=== PATIENT | female | born 1960 | race Caucasian/White ===

== ENCOUNTER 2016-10-11 15:33 | Emergency (ER) | payer OTHER ==
[~2016-10-11] VITALS: Ht 165.1 cm; Wt 117.0 kg
[~2016-10-11 15:33] MED LIST: ACETAMINOPHEN-1 EAC1 ORAL; AZITHROMYCIN250 MG ORAL; AZITHROMYCIN500 MG ORAL; BENADRYL50 MG ORAL; BUSPAR10 MG PO; COLACE100 MG PO; CYCLOBENZAPRINE10 MG ORAL; CYCLOBENZAPRINE10 MG PO; IBUPROFEN600 MG ORAL; KLONOPIN1 MG ORAL; LEVAQUIN500 MG PO; LEVOFLOXACIN500 MG ORAL; METFORMIN HCL850 M1 ORAL; NYSTATIN100000 UN1 ORAL; OMEPRAZOLE40 M1 PO; PAROXETINE HCL20 MG PO; PLAQUENIL200 MG ORAL; PROPRANOLOL HCL20 MG PO; PSEUDOEPHEDRINE60 MG PO; SPIRONOLACTONE25 MG PO; VICTOZA 3-0.6 MG/0.1 SQ; ZITHROMAX250 MG ORAL; ZOCOR20 MG ORAL
--- NOTE | 2016-10-11 15:58 | Emergency Room Report ---
History of Present Illness General Chief Complaint: Generalized Weakness Source: Patient, Medical Record Present Illness HPI 56-year-old female presents to emergency Department complaining of left-sided facial drooping since 5 PM yesterday evening. She also reports mild frontal headache rated as 5/10 in severity localized. She denies photophobia, nausea, vomiting, fevers, chills, rashes, neck pain or stiffness. Patient reports slow progressive onset of headache. Patient denies recent trauma to the head. She states she has a history of polycythemia and occasionally will require therapeutic phlebotomy. Patient denies upper extremity with weakness, numbness, recent illness. Patient also reports a history of lupus. She denies recent travel. Denies numbness tingling or loss of sensation or gross motor movements of the extremities, incontinence of bowel or bladder. Denies CP, Palpitations, LOC, AMS, dizziness, Changes in Vision, Sensation, paresthesias, or a sudden severe headache. Allergies: Coded Allergies: HYDROMORPHONE (Verified Allergy, Severe, 06/16/16) PENICILLINS (Verified Allergy, Severe, " become the girl on fire.", 02/03/13 ) DOXYCYCLINE (Verified Allergy, Intermediate, rash, 02/03/13) Patient History Past Medical History: see triage record Past Surgical History: none Pertinent Family History: none Now: No : 4 Para: 0 Immunizations: UTD Reviewed Nursing Documentation: PMH: Agreed, PSxH: Agreed Nursing Documentation-PMH Hx Cardiac Problems: Yes - tachycardia Hx Diabetes: Yes Hx Neurological Problems: Yes - lupus, fibromyalgia, arthritis Review of Systems All Other Systems: negative except mentioned in HPI Physical Exam Vital Signs Date Time Temp Pulse Resp B/P Pulse Ox O2 Delivery O2 Flow Rate FiO2 10/11/16 15:41 98.4 93 16 95/63 96 Room Air Sp02 EP Interpretation: reviewed, normal General Appearance: no apparent distress, alert, GCS 15, non-toxic Head: normocephalic, atraumatic Eyes: bilateral eye PERRL, bilateral eye normal inspection ENT: hearing grossly normal, normal pharynx, no angioedema, normal voice Neck: full range of motion, supple/symm/no masses Respiratory: chest non-tender, lungs clear, normal breath sounds, speaking full sentences Cardiovascular #1: regular rate, rhythm, no edema Gastrointestinal: normal bowel sounds, non tender, soft, no guarding, no rebound Rectal: deferred Genitourinary: normal inspection, no CVA tenderness Musculoskeletal: back normal, gait/station normal, normal range of motion, non- tender, no calf tenderness Neurologic: alert, oriented x3, responsive, motor strength/tone normal, sensory intact, speech normal, no pronator, facial droop - left sided facial droop ( mild) , other - mild left sided facial droop noted that spares the upper eyelid and eyebrow. , equal assistant auto center manager strength bilaterally, no pronator drift, negative redd's , and pt. is ambulatory with a steady gait without need of assistance. Psychiatric: judgement/insight normal, memory normal, mood/affect normal, no suicidal/homicidal ideation Skin: normal color, no rash, warm/dry, well hydrated Lymphatic: no adenopathy Medical Decision Making PA Attestation Dr. Giles is my supervising Physician whom patient management has been discussed with. Diagnostic Impression: Primary Impression: Quiñones's palsy ER Course Pt. presents to the ED c/o f left-sided facial drooping since 5 PM yesterday evening. She also reports mild frontal headache rated as 5/10 in severity localized. Ddx considered but are not limited to CVA, TIA, Quiñones's Palsy, MG Vital signs: are WNL, pt. is afebrile H&PE are most consistent with Quiñones's palsy , will r/o acute ICH due to pt.'s presentation of eyebrow sparing with left sided facial droop. Pt. is NAD, A&O during ED visit. ORDERS: -CT head No contrast: No evidence of acute fracture, hemorrhage, or intracranial process, prominent age-related frontal atrophy Per: official radiology report. ED INTERVENTIONS: -500mg Tylenol PO DISCHARGE: At this time pt. is stable for d/c to home. Will provide printed patient care instructions, and any necessary prescriptions. Care plan and follow up instructions have been discussed with the patient prior to discharge. Last Vital Signs Date Time Temp Pulse Resp B/P Pulse Ox O2 Delivery O2 Flow Rate FiO2 10/11/16 15:41 98.4 93 16 95/63 96 Room Air Disposition: HOME, SELF-CARE Condition: Stable Scripts Prednisone* (PREDNISONE*) 10 Mg Tablet 15 MG ORAL DAILY for 5 Days, #8 TAB 0 Refills Prov: Lindsey Bro 10/11/16 Acetaminophen* (TYLENOL EXTRA STRENGTH*) 500 Mg Tablet 500 MG ORAL Q6H, #30 TAB 0 Refills Prov: Lindsey Bro 10/11/16 Patient Instructions: Quiñones Palsy Additional Instructions: Take medications as directed. Follow up with PCP or Neurologist in 3-5 days Return sooner to ED if new symptoms occur, or current symptoms become worse. Lindsey Bro Oct 11, 2016 15:58
[2016-10-11 16:08] VITALS: BP 99/66
[2016-10-11] MEDS ORDERED: Acetaminophen 500mg (ES) tab ORAL ONE ×2 (16:30→16:31)
[2016-10-11] MEDS ORDERED: TYLENOL EXTRA500 MG ORAL (17:16)
[2016-10-11] MEDS ORDERED: PREDNISONE20 MG ORAL (17:16)
[2016-10-11] MEDS ORDERED: PREDNISONE10 MG ORAL (17:30)
[2016-10-11 17:38] VITALS: BP 102/69
[2016-10-11 17:39] VITALS: BP 102/69
--- NOTE | 2016-10-12 09:52 | Diagnostic Imaging Report ---
Indications: Cephalgia, left-sided facial droop Technique: Continuous helical CT imaging of the brain was performed with automatic exposure control on a Siemens sensation [address] scanner. Axial and coronal images were reconstructed at 5 mm slice thickness and interval. CTDI volume(s): 70 mGy Total DLP: 1421 mGy-cm Findings: Comparison: None. Bilateral frontal lobes are atrophic. No evidence of mass or hemorrhage, other attenuation abnormality, mass effect, midline shift, hydrocephalus or increased intracranial pressure. Bone window images are unremarkable. Visualized paranasal sinuses and mastoid air cells are clear. IMPRESSION: No evidence of acute intracranial pathology. Early/subtle acute abnormalities may be missed, however. If clinically indicated, MRI of the brain without and with gadolinium may be of benefit in further evaluation Bifrontal atrophy, prominent for age. Written preliminary report placed in PACS 10/11/[address] scanner at [facility] is accredited by the [employer] and the scans are performed using protocols designed to limit radiation exposure to as low as reasonably achievable to attain images of sufficient resolution adequate for diagnostic evaluation.
== END 2016-10-11 17:40 | disposition home or self-care (01) ==
LOC: EMR 16:17
DX: G51.0 Bell's palsy (principal); R51 Headache; E11.9 Type 2 diabetes mellitus without complications; M32.9 Systemic lupus erythematosus, unspecified; M79.7 Fibromyalgia
CPT/HCPCS: 70450; 99284

== ENCOUNTER 2016-12-05 16:51 | Emergency (ER) | payer OTHER ==
[~2016-12-05] VITALS: Ht 165.1 cm; Wt 119.3 kg
[~2016-12-05 16:51] MED LIST changes: +PREDNISONE10 MG ORAL; +PREDNISONE20 MG ORAL; +TYLENOL EXTRA500 MG ORAL
[2016-12-05] MEDS ORDERED: PREDNISONE5 MG ORAL (17:54)
[2016-12-05] MEDS ORDERED: IBUPROFEN600 MG ORAL (17:54)
[2016-12-05] MEDS ORDERED: PREDNISONE5 M4 PO (17:58)
[2016-12-05 18:05] VITALS: BP 123/71
--- NOTE | 2016-12-05 19:28 | Emergency Room Report ---
History of Present Illness General Chief Complaint: Pain Source: Patient Present Illness HPI The patient is a 56-year-old female with a history of lupus presenting with total body pain which began yesterday. The patient states that this feels typical of her lupus flareups. The patient states that she usually takes Motrin with prednisone which helps. Pain is described as an 8/10 dull ache to all of her joints. Pain worse with touching and movement. The patient has tried Motrin which does help. The patient denies any other symptoms including nausea, vomiting, fever, chills, abdominal pain Allergies: Coded Allergies: HYDROMORPHONE (Verified Allergy, Severe, 06/16/16) PENICILLINS (Verified Allergy, Severe, " become the girl on fire.", 02/03/13 ) DOXYCYCLINE (Verified Allergy, Intermediate, rash, 02/03/13) Patient History Past Medical History: see triage record Pertinent Family History: none Now: No Reviewed Nursing Documentation: PMH: Agreed, PSxH: Agreed Nursing Documentation-PMH Past Medical History: No History, Except For Hx Cardiac Problems: Yes - tachycardia Hx Diabetes: Yes Hx Neurological Problems: Yes - lupus, fibromyalgia, arthritis Review of Systems All Other Systems: negative except mentioned in HPI Physical Exam Vital Signs Date Time Temp Pulse Resp B/P Pulse Ox O2 Delivery O2 Flow Rate FiO2 12/05/16 17:03 98.2 101 16 104/73 100 Room Air Sp02 EP Interpretation: reviewed, normal General Appearance: no apparent distress, alert, GCS 15, non-toxic Head: normocephalic, atraumatic Eyes: bilateral eye PERRL, bilateral eye normal inspection ENT: hearing grossly normal, normal pharynx, no angioedema, normal voice Neck: full range of motion, supple/symm/no masses Cardiovascular #1: tachycardia Gastrointestinal: normal bowel sounds, non tender, soft, non-distended, no guarding, no rebound Genitourinary: normal inspection, no CVA tenderness Musculoskeletal: back normal, gait/station normal, normal range of motion, tender - TTP diffusely Neurologic: alert, oriented x3, responsive, motor strength/tone normal, sensory intact, speech normal Psychiatric: judgement/insight normal, memory normal, mood/affect normal, no suicidal/homicidal ideation Skin: normal color, no rash, warm/dry, well hydrated Lymphatic: no adenopathy Medical Decision Making PA Attestation Dr. Feng is my supervising physician. Patient management was discussed with my supervising physician Diagnostic Impression: Primary Impression: Lupus ER Course The patient is a 56-year-old female with a history of lupus presenting with total body pain which began yesterday Ddx considered include but not limited to sprain/strain, fracture, contusion, SLE PE: tachycardia. Otherwise unremarkable. Pt admits to feeling anxious. diffuse TTP over joints. No erythema. Skin warm and dry. SILT. Full AROM. Normal gait Pt admits to recent kidney function test which was unremarkable. The patient is discharged home with prescription for prednisone and Motrin. Patient will see PMD as soon as possible for followup. ER precautions are given Last Vital Signs Date Time Temp Pulse Resp B/P Pulse Ox O2 Delivery O2 Flow Rate FiO2 12/05/16 18:05 96 16 123/71 98 Room Air 12/05/16 18:05 98.1 Status: improved Disposition: HOME, SELF-CARE Condition: Improved Scripts Prednisone (PREDNISONE) 5 Mg Tab.ds.pk 5 MG PO DAILY, #1 PACK Prov: LEXII MAYNARD 12/05/16 Ibuprofen* (MOTRIN*) 600 Mg Tablet 600 MG ORAL Q8H Y for For Pain, #30 TAB 0 Refills Prov: LEXII MAYNARD 12/05/16 Patient Instructions: Systemic Lupus Erythematosus, Adult Additional Instructions: I discussed my findings with the patient. All questions and concerns have been answered. Treatment and medication compliance have been addressed. I advised the patient that they need to follow up with PMD in 3-5 days. Return to ED if symptoms worsen, new symptoms arise, or if needed for any reason. Patient verbalized understanding of discharge instructions. LEXII MAYNARD Dec 05, 2016 19:28
== END 2016-12-05 19:00 | disposition home or self-care (01) ==
LOC: EMR 18:07
DX: M32.9 Systemic lupus erythematosus, unspecified (principal); M79.7 Fibromyalgia; M19.90 Unspecified osteoarthritis, unspecified site; Z88.5 Allergy status to narcotic agent; Z88.0 Allergy status to penicillin; R00.0 Tachycardia, unspecified; E11.9 Type 2 diabetes mellitus without complications; R52 Pain, unspecified
CPT/HCPCS: 99284

== ENCOUNTER 2017-03-20 15:18 | Emergency (ER) | payer OTHER ==
[~2017-03-20] VITALS: Ht 162.6 cm; Wt 117.9 kg
[~2017-03-20 15:18] MED LIST changes: +PREDNISONE5 M4 PO; +PREDNISONE5 MG ORAL
[2017-03-20] MEDS ORDERED: cefTRIAXone 2 GM in NS 110 ML IVPB ONE ×2 (16:00→17:45)
[2017-03-20] MEDS ORDERED: Ketorolac 30mg Inj IV ONE (16:15)
[2017-03-20 16:54] LABS: BASOPHILS % (AUTO) 1.4 % (0.0-2.0); EOSINOPHILS % (AUTO) 2.2 % (0.0-3.0); LYMPHOCYTES % (AUTO) 23.3 % (20.0-45.0); MEAN CORPUSCULAR HEMOGLOBIN 26.4 PG (27.0-31.0); MEAN CORPUSCULAR HGB CONC 31.9 G/DL (32.0-36.0); MEAN CORPUSCULAR VOLUME 83 FL (80-99); MEAN PLATELET VOLUME 7.1 FL (6.5-10.1); MONOCYTES % (AUTO) 6.4 % (1.0-10.0); NEUTROPHILS % (AUTO) 66.8 % (45.0-75.0); PLATELET COUNT 269 K/UL (150-450); RED BLOOD COUNT 5.34 M/UL (4.20-5.40); RED CELL DISTRIBUTION WIDTH 15.2 % (11.6-14.8); WHITE BLOOD COUNT 8.2 K/UL (4.8-10.8)
[2017-03-20 17:32] LABS: ALBUMIN/GLOBULIN RATIO 1.2 (1.0-2.7); CALCIUM 9.3 mg/dL (8.6-10.2); GLOMERULAR FILTRATION RATE 56.9 mL/min (>60); POTASSIUM 3.6 mEQ/L (3.4-4.9); TOTAL PROTEIN 7.3 g/dL (6.6-8.7)
[2017-03-20] MEDS ORDERED: AFRIN NASAL SPR30 ML NASAL (18:39)
[2017-03-20] MEDS ORDERED: PSEUDOEPHEDRINE60 MG PO (18:39)
[2017-03-20] MEDS ORDERED: ROCEPHIN2 GM/50 ML IV (18:39)
[2017-03-20 18:40] VITALS: BP 93/54
[2017-03-20 20:09] VITALS: BP 99/63
--- NOTE | 2017-03-20 22:09 | Emergency Room Report ---
History of Present Illness General Chief Complaint: General Complaint Source: Patient, Medical Record (LEXII MAYNARD P.ADeb) Present Illness HPI The patient is a 56-year-old female presenting for treatment of sinusitis. She states that she has had symptoms of facial pain and fullness for the past month and was seen by ENT who obtained a culture which grew proteus mirabilis. The patient was placed on oral antibiotics initially which was found to be resistant. She is allergic to the remaining oral antibiotics. She was advised to come to the emergency department for IV antibiotics. Pain is a 7/10 dull ache and does not radiate from the face. Worse with touch. She also admits to nasal congestion. She has been using Claritin-D at home which has not been helping. She denies other symptoms including N, V, F, chills, dizziness, cough (LEXII MAYNARD P.A.) Allergies: Coded Allergies: HYDROMORPHONE (Verified Allergy, Severe, 06/16/16) PENICILLINS (Verified Allergy, Severe, " become the girl on fire.", 02/03/13 ) DOXYCYCLINE (Verified Allergy, Intermediate, rash, 02/03/13) SULFA (SULFONAMIDE ANTIBIOTICS) (Verified Allergy, Unknown, 03/21/17) Patient History Past Medical History: see triage record Pertinent Family History: none Last Menstrual Period: menopause Now: No : 0 Para: 0 Reviewed Nursing Documentation: PMH: Agreed, PSxH: Agreed (LEXII MAYNARD P.A.) Nursing Documentation-PMH Past Medical History: No History, Except For Hx Cardiac Problems: Yes - tachycardia Hx Diabetes: Yes Hx Neurological Problems: Yes - lupus, fibromyalgia, arthritis (LEXII MAYNARD P.A.) Review of Systems All Other Systems: negative except mentioned in HPI (LEXII MAYNARD P.A.) Physical Exam Vital Signs Date Time Temp Pulse Resp B/P Pulse Ox O2 Delivery O2 Flow Rate FiO2 03/20/17 15:33 98.1 82 16 93/47 98 Room Air Sp02 EP Interpretation: reviewed, normal General Appearance: no apparent distress, alert, GCS 15, non-toxic Head: normocephalic, atraumatic Eyes: bilateral eye PERRL, bilateral eye normal inspection ENT: normal pharynx, normal voice, uvula midline, nasal congestion, other - TTP over both frontal and maxillary sinuses Neck: full range of motion, supple/symm/no masses Respiratory: chest non-tender, lungs clear, normal breath sounds, no wheezing, speaking full sentences Cardiovascular #1: regular rate, rhythm, no edema Gastrointestinal: normal bowel sounds, non tender, soft, non-distended, no guarding, no rebound Musculoskeletal: back normal, gait/station normal, normal range of motion, non- tender Neurologic: alert, oriented x3, responsive, motor strength/tone normal, sensory intact, speech normal Psychiatric: judgement/insight normal, memory normal, mood/affect normal, no suicidal/homicidal ideation Skin: normal color, no rash, warm/dry, well hydrated Lymphatic: no adenopathy (LEXII MAYNARD) Medical Decision Making PA Attestation Dr. Newman is my supervising physician. Patient management was discussed with my supervising physician (LEXII MAYNARD) Diagnostic Impression: Primary Impression: Sinusitis Qualified Codes: J01.90 - Acute sinusitis, unspecified Additional Impression: Lupus Qualified Codes: M32.8 - Other forms of systemic lupus erythematosus ER Course The patient is a 56-year-old female presenting for treatment of sinusitis Differential diagnosis include but not limited to pharyngitis, sinusitis, AOM, bronchitis, PNA PE: afebrile. NAD There is tenderness to palpation over both bilateral frontal and maxillary sinuses. + Nasal congestion Otherwise unremarkable The patient was initially put in for admission and blood work was unremarkable. She was given 2 g of IV Rocephin and fluids. The patient's insurance company then called and stated that the patient would be able to have outpatient IV antibiotics at home. The patient will be discharged home with a prescription for 5 days of IV Rocephin, Sudafed, and Afrin. She is given ER precautions Laboratory Tests Test 03/20/17 16:20 White Blood Count 8.2 K/UL (4.8-10.8) Red Blood Count 5.34 M/UL (4.20-5.40) Hemoglobin 14.1 G/DL (12.0-16.0) Hematocrit 44.2 % (37.0-47.0) Mean Corpuscular Volume 83 FL (80-99) Mean Corpuscular Hemoglobin 26.4 PG (27.0-31.0) L Mean Corpuscular Hemoglobin Concent 31.9 G/DL (32.0-36.0) L Red Cell Distribution Width 15.2 % (11.6-14.8) H Platelet Count 269 K/UL (150-450) Mean Platelet Volume 7.1 FL (6.5-10.1) Neutrophils (%) (Auto) 66.8 % (45.0-75.0) Lymphocytes (%) (Auto) 23.3 % (20.0-45.0) Monocytes (%) (Auto) 6.4 % (1.0-10.0) Eosinophils (%) (Auto) 2.2 % (0.0-3.0) Basophils (%) (Auto) 1.4 % (0.0-2.0) Erythrocyte Sedimentation Rate 23 MM/HR (0-30) Sodium Level 140 mEQ/L (135-145) Potassium Level 3.6 mEQ/L (3.4-4.9) Chloride Level 96 mEQ/L (98-107) L Carbon Dioxide Level 28 mEQ/L (20-30) Anion Gap 16 (5-15) H Blood Urea Nitrogen 20 mg/dL (7-23) Creatinine 1.0 mg/dL (0.5-0.9) H Estimate Glomerular Filtration Rate 56.9 mL/min (>60) Glucose Level 119 mg/dL (74-106) H Calcium Level 9.3 mg/dL (8.6-10.2) Total Bilirubin 0.3 mg/dL (0.0-1.2) Aspartate Amino Transferase (AST) 14 U/L (5-40) Alanine Aminotransferase (ALT) 14 U/L (3-33) Alkaline Phosphatase 51 U/L (35-104) C-Reactive Protein, Quantitative < 0.3 mg/dL (< 0.5) Total Protein 7.3 g/dL (6.6-8.7) Albumin 4.1 g/dL (3.5-5.2) Globulin 3.2 g/dL Albumin/Globulin Ratio 1.2 (1.0-2.7) Lab Results Impression unremarkable (LEXII MAYNARD) ER Course I was intimately involved in the treatment plan for this patient. I examined her and agree with the findings and the treatment plan. (Len Newman M.D.) Last Vital Signs Date Time Temp Pulse Resp B/P Pulse Ox O2 Delivery O2 Flow Rate FiO2 03/20/17 20:09 79 16 99/63 94 Room Air 03/20/17 18:40 98.1 Status: improved (LEXII MAYNARD P.A.) Disposition: HOME, SELF-CARE Condition: Improved Scripts Oxymetazoline HCl (Afrin) 15 Ml [place] 2 SPRAYS NASAL TWICE A DAY, #30 SPRAY Prov: LEXII MAYNARD P.A. 03/20/17 Pseudoephedrine Hcl* (SUDAFED*) 60 Mg Tablet 60 MG PO Q6H, #20 TAB Prov: LEXII MAYNARD P.A. 03/20/17 Ceftriaxone Sod (Ceftriaxone 2 gm-D5w Bag) 2 Gm/50 Ml Piggyback 2 GM IV DAILY for 5 Days, BAG Prov: LEXII MAYNARD P.A. 03/20/17 [facility] (PCP) Patient Instructions: Sinusitis, Adult Additional Instructions: I discussed my findings with the patient. All questions and concerns have been answered. Treatment and medication compliance have been addressed. I advised the patient that they need to follow up with PMD in 3-5 days. Return to ED if symptoms worsen, new symptoms arise, or if needed for any reason. Patient verbalized understanding of discharge instructions. LEXII MAYNARD Mar 20, 2017 22:09 Len Newman M.D. Mar 28, 2017 05:25
[2017-03-21] MEDS ORDERED: ROCEPHIN2 GM/50 ML IV (16:24)
[2017-03-21] MEDS ORDERED: NITROFURANTOIN100 M2 ORAL (17:03)
== END 2017-03-20 20:09 | disposition home or self-care (01) ==
LOC: EMR 16:04 → EDBEDREQ 18:45 → CANBEDREQ 19:00 → EMR 20:09
DX: J01.90 Acute sinusitis, unspecified (principal); Z88.1 Allergy status to other antibiotic agents; Z88.0 Allergy status to penicillin; Z88.6 Allergy status to analgesic agent; E11.9 Type 2 diabetes mellitus without complications; M79.7 Fibromyalgia; M19.90 Unspecified osteoarthritis, unspecified site
CPT/HCPCS: 36415; 80053; 85025; 85651; 86140; 96360; 96374; 96375; 99284; J0696; J1885; J2405

== ENCOUNTER 2017-03-21 13:15 | Emergency (ER) | payer OTHER ==
[~2017-03-21] VITALS: Ht 162.6 cm; Wt 117.9 kg
[~2017-03-21 13:15] MED LIST changes: +AFRIN NASAL SPR30 ML NASAL; +ROCEPHIN2 GM/50 ML IV
[2017-03-21 13:37] VITALS: BP 104/57
[2017-03-21] MEDS ORDERED: cefTRIAXone 2 GM in NS 110 ML IVPB ONE (13:45)
[2017-03-21] MEDS ORDERED: Ketorolac 30mg Inj IV ONE (14:00)
[2017-03-21] MEDS ORDERED: Bacitracin Oint UD TOPIC ONE (15:15)
[2017-03-21 16:23] LABS: APPEARANCE,URINE SLIGHTLY CLOUDY; KETONES,URINE NEGATIVE (NEGATIVE); LEUKOCYTE ESTERASE ,URINE 3+ (NEGATIVE); NITRITE,URINE NEGATIVE (NEGATIVE); PH,URINE 6 (4.5-8.0); PROTEIN,URINE 1+ (NEGATIVE); UROBILINOGEN,URINE NORMAL MG/DL (0.0-1.0)
[2017-03-21] MEDS ORDERED: ROCEPHIN2 GM/50 ML IV (16:24)
[2017-03-21 16:46] LABS: BACTERIA,URINE OCCASIONAL /HPF; SQUAMOUS EPITHELIAL CELL,UR MODERATE /LPF (NONE/OCC)
[2017-03-21 17:00] VITALS: BP 121/60
--- NOTE | 2017-03-21 17:02 | Emergency Room Report ---
History of Present Illness General Chief Complaint: General Complaint Source: Patient Present Illness HPI 56-year-old female presents emergency department complaining of inability to obtain IV antibiotics at home for recurrent and resistant sinusitis. Patient was seen here in the emergency department yesterday and was given IV antibiotics , due to her insurance she was not eligible for admission and outpatient IV antibiotic therapy he was supposed to have been facilitated. Patient states that she was not contacted for her course of antibiotics today. Patient denies any changes in her condition. Patient states she failed oral antibiotic therapy in addition to culture growing positive for resistant bacteria and IV antibiotics are the only option. She does report some dysuria x2 weeks as well. Patient denies hematuria, fevers, chills, or abdominal pain. Denies CP, Palpitations, LOC, AMS, dizziness, Changes in Vision, Sensation, paresthesias, or a sudden severe headache. Allergies: Coded Allergies: HYDROMORPHONE (Verified Allergy, Severe, 06/16/16) PENICILLINS (Verified Allergy, Severe, " become the girl on fire.", 02/03/13 ) DOXYCYCLINE (Verified Allergy, Intermediate, rash, 02/03/13) SULFA (SULFONAMIDE ANTIBIOTICS) (Verified Allergy, Unknown, 03/21/17) Patient History Past Medical History: see triage record Past Surgical History: none Pertinent Family History: none Last Menstrual Period: N/A Now: No Reviewed Nursing Documentation: PMH: Agreed, PSxH: Agreed Nursing Documentation-PMH Hx Cardiac Problems: Yes - tachycardia Hx Diabetes: Yes Hx Neurological Problems: Yes - lupus, fibromyalgia, arthritis Review of Systems All Other Systems: negative except mentioned in HPI Physical Exam Vital Signs Date Time Temp Pulse Resp B/P Pulse Ox O2 Delivery O2 Flow Rate FiO2 03/21/17 13:20 98.4 85 18 104/57 96 Room Air Sp02 EP Interpretation: reviewed, normal General Appearance: no apparent distress, alert, GCS 15, non-toxic Head: normocephalic, atraumatic Eyes: bilateral eye PERRL, bilateral eye normal inspection ENT: hearing grossly normal, normal pharynx, no angioedema, normal voice, TMs + canals normal, uvula midline, nasal congestion, other - bilateral maxillary sinus ttp Neck: full range of motion, supple/symm/no masses Respiratory: lungs clear, normal breath sounds, speaking full sentences Cardiovascular #1: regular rate, rhythm, no edema Musculoskeletal: back normal, gait/station normal, normal range of motion, non- tender Neurologic: alert, oriented x3, responsive, motor strength/tone normal, sensory intact, speech normal Psychiatric: judgement/insight normal, memory normal, mood/affect normal Skin: normal color, no rash, warm/dry, well hydrated, abrasions - 1cm abrasion on posterior neck, no erythema, no bleeding at this time. Lymphatic: no adenopathy Medical Decision Making PA Attestation Dr. Molina is my supervising Physician whom patient management has been discussed with. Diagnostic Impression: Primary Impression: Acute sinusitis Qualified Codes: J01.01 - Acute recurrent maxillary sinusitis Additional Impression: UTI (urinary tract infection) Qualified Codes: N30.00 - Acute cystitis without hematuria ER Course 56-year-old female presents emergency department complaining of inability to obtain IV antibiotics at home for recurrent and resistant sinusitis. Patient was seen here in the emergency department yesterday and was given IV antibiotics , due to her insurance she was not eligible for admission and outpatient IV antibiotic therapy he was supposed to have been facilitated. Patient states that she was not contacted for her course of antibiotics today. Patient denies any changes in her condition. Patient states she failed oral antibiotic therapy in addition to culture growing positive for resistant bacteria and IV antibiotics are the only option. She does report some dysuria x2 weeks as well. Ddx considered but are not limited to Sinusitis, UTI, cystitis, nasal congestion. Vital signs: Pt. is afebrile, the remaining VS are WNL H&PE are most consistent with maxillary sinusitis. pt. has abrasion on the posterior neck, no changes in condition from yesterday's ED evaluation. repeat labs are not warranted at this time. I have reviewed pt. laboratory results from yesterday and they were unremarkable. ORDERS: -UA: elevated WBC's, leuks, and some bacteria will treat for UTI. ED INTERVENTIONS: -IV Access -2G Rocephin IV. - Toradol IV- for sinus pain/pressure - Zofran IV-- pt. reports abx causes her to have nausea. HOME NURSING CARE WAS FACILITATED BY [employer] Pt. is TO BE GIVEN RX FOR IV ABX, and to BE D/C WITH IV ACCESS. DISCHARGE: At this time pt. is stable for d/c to home with close outpatient follow up. Will provide printed patient care instructions, and any necessary prescriptions. Care plan and follow up instructions have been discussed with the patient prior to discharge. Labs Test 03/21/17 16:00 Urine Color Pale yellow Urine Appearance Slightly cloudy Urine pH 6 (4.5-8.0) Urine Specific [place] 1.025 (1.005-1.035) Urine Protein 1+ (NEGATIVE) Urine Glucose (UA) Negative (NEGATIVE) Urine Ketones Negative (NEGATIVE) Urine Occult Blood Negative (NEGATIVE) Urine Nitrite Negative (NEGATIVE) Urine Bilirubin Negative (NEGATIVE) Urine Urobilinogen Normal MG/DL (0.0-1.0) Urine Leukocyte Esterase 3+ (NEGATIVE) Urine RBC 2-4 /HPF (0 - 2) Urine WBC 5-10 /HPF (0 - 2) Urine Squamous Epithelial Cells Moderate /LPF (NONE/OCC) Urine Bacteria Occasional /HPF (NONE) Last Vital Signs Date Time Temp Pulse Resp B/P Pulse Ox O2 Delivery O2 Flow Rate FiO2 03/21/17 13:37 98.4 18 104/57 96 Room Air 03/21/17 13:20 85 Disposition: HOME, SELF-CARE Condition: Improved Scripts Nitrofurantoin Monohyd/M-Cryst* (MACROBID 100 MG*) 100 Mg Capsule 100 MG ORAL EVERY 12 HOURS for 5 Days, #10 CAP Prov: Lindsey Bro 03/21/17 Ceftriaxone Sod (Ceftriaxone 2 gm-D5w Bag) 2 Gm/50 Ml Piggyback 2 GM IV DAILY for 4 Days, #4 BAG Prov: ELIZABET MOLINA M.D. 03/21/17 Referrals: [facility] ([facility]P) Patient Instructions: Sinusitis, Adult, [id number] Additional Instructions: Take medications as directed, WITH [facility]ALTH [facility] Follow up with your PCP in 3 days Return sooner to ED if new symptoms occur, or current symptoms become worse. - Please note that this Emergency Department Report was dictated using whoactuallyflume ride operator technology software, occasionally this can lead to erroneous entry secondary to interpretation by the dictation equipment. Lindsey Bro Mar 21, 2017 17:02
[2017-03-21] MEDS ORDERED: NITROFURANTOIN100 M2 ORAL (17:03)
== END 2017-03-21 17:00 | disposition home or self-care (01) ==
LOC: EMR 13:45
DX: J01.91 Acute recurrent sinusitis, unspecified (principal); N39.0 Urinary tract infection, site not specified; E11.9 Type 2 diabetes mellitus without complications; M32.9 Systemic lupus erythematosus, unspecified; Z88.0 Allergy status to penicillin; Z88.2 Allergy status to sulfonamides; Z88.8 Allergy status to other drugs, medicaments and biological substances
CPT/HCPCS: 81003; 99284; J0696; J1885; J2405

== ENCOUNTER 2017-06-16 15:21 | Emergency (ER) | payer OTHER ==
[~2017-06-16] VITALS: Ht 162.6 cm; Wt 117.5 kg
[~2017-06-16 15:21] MED LIST changes: +NITROFURANTOIN100 M2 ORAL
--- NOTE | 2017-06-16 15:41 | Emergency Room Report ---
History of Present Illness General Chief Complaint: Pain Source: Patient Present Illness HPI Patient presents with complaints of pain to the right ring finger she reports that she has a trigger finger and feels that is essentially flexed and has pain when she stretches out She has had treatments for this finger previously she has also had tendon release for her thumb The pain and discomfort has been ongoing for the past one month denies any fevers or chills denies any wrist pain denies any fall or trauma Allergies: Coded Allergies: HYDROMORPHONE (Verified Allergy, Severe, 06/16/16) PENICILLINS (Verified Allergy, Severe, " become the girl on fire.", 02/03/13 ) DOXYCYCLINE (Verified Allergy, Intermediate, rash, 02/03/13) SULFA (SULFONAMIDE ANTIBIOTICS) (Verified Allergy, Unknown, 03/21/17) Patient History Past Medical History: see triage record Pertinent Family History: none Reviewed Nursing Documentation: PMH: Agreed, PSxH: Agreed Nursing Documentation-PMH Past Medical History: No History, Except For Hx Cardiac Problems: Yes - tachycardia Hx Pacemaker: No Hx Asthma: No Hx COPD: No Hx Diabetes: Yes Hx Cancer: No Hx Gastrointestinal Problems: No Hx Dialysis: No History Of Psychiatric Problem: No Hx Neurological Problems: Yes - lupus, fibromyalgia, arthritis Hx Cerebrovascular Accident: No Hx Seizures: No Review of Systems All Other Systems: negative except mentioned in HPI Physical Exam Vital Signs Date Time Temp Pulse Resp B/P (MAP) Pulse Ox O2 Delivery O2 Flow Rate FiO2 06/16/17 15:25 98.1 80 16 106/53 99 Room Air Sp02 EP Interpretation: reviewed, normal General Appearance: well appearing, no apparent distress Head: normocephalic, atraumatic Eyes: bilateral eye PERRL, bilateral eye EOMI ENT: normal pharynx Neck: full range of motion, supple Musculoskeletal: other - Patient initially was pulling her right ring finger in a flexed position, but as she discusses different nickel history she is able to fully extend the finger and have full range of motion, there is no signs of any erythema or swelling, there is good cap refill, , Neurologic: alert, oriented x3 Skin: normal color, no rash Lymphatic: no adenopathy Medical Decision Making Diagnostic Impression: Primary Impression: Finger pain, right ER Course Patient has appropriate range of motion of the finger on the right hand No signs of any acute trauma patient Essentially requesting steroid injection into the joint I did discuss with her that that is not in the scope of practice of the emergency room Patient was provided with oral medication here She did also requests injection of Toradol Unfortunately given the patient's multiple different providers with different medications on the [employer] system, I was also not able to provide any further prescription Given the safe pain medicine prescribing can pain Patient was made aware that is and requires close outpatient follow Last Vital Signs Date Time Temp Pulse Resp B/P (MAP) Pulse Ox O2 Delivery O2 Flow Rate FiO2 06/16/17 15:25 98.1 80 16 106/53 99 Room Air Status: improved Disposition: HOME, SELF-CARE Condition: Improved Scripts Acetaminophen (Tylenol) 325 Mg Tablet 650 MG ORAL Q6H Y for Prn Pain/Headache/Temp > 101, #20 TAB 0 Refills Prov: COLLEEN SOTO D.O. 06/16/17 Ibuprofen* (MOTRIN*) 600 Mg Tablet 600 MG ORAL Q8H Y for For Pain, #20 TAB 0 Refills Prov: COLLEEN SOTO D.O. 06/16/17 Additional Instructions: Patient is provided with the discharge instructions notified to follow up with primary doctor in the next 2-3 days otherwise return to the er with any worsening symptoms. Please note that this report is being documented using [employer] technology. This can lead to erroneous entry secondary to incorrect interpretation by the dictating instrument. COLLEEN SOTO D.O. Jun 16, 2017 15:41
[2017-06-16] MEDS ORDERED: Ketorolac 60mg Inj IM ONE (15:45)
[2017-06-16] MEDS: Tylenol #3 tab (300mg/30mg) ORAL ONE ×2 (15:49→15:56)
[2017-06-16] MEDS ORDERED: IBUPROFEN600 MG ORAL (16:26)
[2017-06-16] MEDS ORDERED: TYLENOL325 MG ORAL (16:26)
[2017-06-16 16:30] VITALS: BP 106/53
== END 2017-06-16 16:37 | disposition home or self-care (01) ==
LOC: EMR 15:54
DX: M25.541 Pain in joints of right hand (principal); Z88.2 Allergy status to sulfonamides; Z88.0 Allergy status to penicillin; Z88.8 Allergy status to other drugs, medicaments and biological substances; M32.9 Systemic lupus erythematosus, unspecified; M79.7 Fibromyalgia; M19.90 Unspecified osteoarthritis, unspecified site; E11.9 Type 2 diabetes mellitus without complications
CPT/HCPCS: 96372; 99284

== ENCOUNTER 2017-08-02 12:38 | Emergency (ER) | payer OTHER ==
[~2017-08-02] VITALS: Ht 162.6 cm; Wt 115.7 kg
[~2017-08-02 12:38] MED LIST changes: +TYLENOL325 MG ORAL
[2017-08-02 12:48] VITALS: BP 114/79
[2017-08-02] MEDS ORDERED: Ketorolac 60mg Inj IM ONE (13:15)
[2017-08-02] MEDS ORDERED: BENTYL10 MG ORAL (14:13)
[2017-08-02 14:15] VITALS: BP 114/79
--- NOTE | 2017-08-02 14:48 | Emergency Room Report ---
History of Present Illness General Chief Complaint: General Complaint Source: Patient Present Illness HPI Patient is a 48-year-old female presented after increased left-sided abdominal pain. Patient gradual onset of symptoms. Patient reports having frequent episodes of intermittent bouts of constipation diarrhea. She reports having increased left-sided abdominal discomfort. Patient recently been taking laxatives and had been having intermittent bowel movements. She denied any vomiting. She reports having some episodes of nausea. She reports having prior history of right renal cyst. She states that she's had negative colonoscopy recently. She also states that she had previous diagnosis of diverticulosis without diverticulitis Allergies: Coded Allergies: HYDROMORPHONE (Verified Allergy, Severe, 06/16/16) PENICILLINS (Verified Allergy, Severe, " become the girl on fire.", 02/03/13 ) DOXYCYCLINE (Verified Allergy, Intermediate, rash, 02/03/13) SULFA (SULFONAMIDE ANTIBIOTICS) (Verified Allergy, Unknown, 03/21/17) Patient History Past Medical History: see triage record Reviewed Nursing Documentation: PMH: Agreed, PSxH: Agreed Nursing Documentation-PMH Hx Cardiac Problems: Yes - tachycardia Hx Pacemaker: No Hx Asthma: No Hx COPD: No Hx Diabetes: Yes Hx Cancer: No Hx Gastrointestinal Problems: No Hx Dialysis: No Hx Neurological Problems: Yes - lupus, fibromyalgia, arthritis Hx Cerebrovascular Accident: No Hx Seizures: No Review of Systems All Other Systems: negative except mentioned in HPI Physical Exam Vital Signs Date Time Temp Pulse Resp B/P (MAP) Pulse Ox O2 Delivery O2 Flow Rate FiO2 08/02/17 12:42 97.5 84 20 114/79 100 Sp02 EP Interpretation: reviewed, normal General Appearance: normal inspection, well appearing, no apparent distress, alert, GCS 15, obese Head: atraumatic ENT: normal ENT inspection, hearing grossly normal, normal voice Neck: normal inspection, full range of motion, supple, no bony tend Respiratory: normal inspection, lungs clear, normal breath sounds, no respiratory distress, no retraction, no wheezing Cardiovascular #1: regular rate, rhythm, no edema Gastrointestinal: normal inspection, normal bowel sounds, non tender, soft, no guarding, no hernia Genitourinary: no CVA tenderness Musculoskeletal: normal inspection, back normal, normal range of motion Neurologic: normal inspection, alert, oriented x3, responsive, audio visual technician III-XII nml as tested, speech normal Psychiatric: normal inspection, judgement/insight normal, mood/affect normal Skin: normal inspection, normal color, no rash Medical Decision Making Diagnostic Impression: Primary Impression: Abdominal pain ER Course Patient presented for abdominal pain. Differential diagnoses included ischemic bowel, appendicitis, perforated viscus, abdominal aortic aneurysm, inferior myocardial infarction, viral gastroenteritis. CT imaging of the abdomen pelvis was ordered the patient's left-sided abdominal pain. A CT read by radiology showed evidence of right renal cyst with no evidence of diverticulitis. Patient was given copy of her CT and advised followup with primary care physician for reexamination.The patient is advised to follow up with primary care doctor in 1-2 days. Patient is advised to return if any worsening condition or if any changes in status that are concerning. Last Vital Signs Date Time Temp Pulse Resp B/P (MAP) Pulse Ox O2 Delivery O2 Flow Rate FiO2 08/02/17 12:48 97.5 84 20 114/79 100 Status: improved Disposition: HOME, SELF-CARE Condition: Stable Scripts Dicyclomine Hcl* (BENTYL*) 10 Mg Capsule 10 MG ORAL FOUR TIMES A DAY, #20 CAP Prov: Kalen Pelayo 08/02/17 Patient Instructions: Abdominal Pain, Adult Kalen Pelayo Aug 02, 2017 14:48
--- NOTE | 2017-08-03 09:54 | Diagnostic Imaging Report ---
Indication: Abdominal pain Technique: Continuous helical transaxial imaging of the abdomen and pelvis was obtained from the lung bases to the pubic symphysis. No intravenous contrast was administered. Coronal 2-D reformats were also obtained. Total Dose length Product (DLP): [address] Dose Index Volume (CTDIvol): 19.75, 0.15 mGy Comparison: none Findings: The lung bases are essentially clear. There are multiple hypodensities within the kidneys likely cysts. The largest of these is in the right kidney and measures about 12. The appendix is normal. There is no free fluid. There is no nephrolithiasis or hydronephrosis. No evidence of bowel obstruction. Calcific focus in the uterus probably a fibroid. A few areas of superficial subcutaneous soft tissue stranding are noted. A please correlate clinically. These may be small injection sites. There is narrowing of intervertebral discs and accompanying endplate osteophyte formation. Hypertrophied facet joints also demonstrated. Impression: No acute findings. Normal appendix. Calcified uterine fibroid. 12 CM cyst in the right kidney. Other smaller cysts suspected bilaterally. Ultrasound may confirm this. Degenerative spondylosis of the lumbar spine. The CT scanner at [facility] is accredited by the [employer] and the scans are performed using dose optimization techniques as appropriate to a performed exam including Automatic Exposure control.
== END 2017-08-02 14:56 | disposition home or self-care (01) ==
LOC: EMR 13:05
DX: R10.9 Unspecified abdominal pain (principal); M32.9 Systemic lupus erythematosus, unspecified; M79.7 Fibromyalgia; M19.90 Unspecified osteoarthritis, unspecified site; E11.9 Type 2 diabetes mellitus without complications; Z88.6 Allergy status to analgesic agent; Z88.0 Allergy status to penicillin; Z88.1 Allergy status to other antibiotic agents; Z88.2 Allergy status to sulfonamides
CPT/HCPCS: 74176; 96372; 99284

== ENCOUNTER 2018-01-05 16:51 | Emergency (ER) | payer OTHER ==
[~2018-01-05] VITALS: Ht 162.6 cm; Wt 115.2 kg
[~2018-01-05 16:51] MED LIST changes: +BENTYL10 MG ORAL
--- NOTE | 2018-01-05 17:27 | Emergency Room Report ---
History of Present Illness General Chief Complaint: Female Urogenital Problems Source: Patient, Medical Record Present Illness HPI 57 yo female patient presents to ER complaining of dysuria x2 days. Patient reports frequency and urgency during this time. Patient reports she wipes back to front after urinating. Reports hx of UTI two weeks ago, treated with Macrobid. Reports resolution of symptoms 1 week ago and then symptoms recurred 2 days ago. Reports feels "like UTI again." Denies white vaginal discharge, hematuria, vaginal odor during this time. Also complains of crampy lower abdominal pain and back pain during this time. Reports hx of chronic back pain. Reports LMP 7 years ago. Reports yearly PAP exam, denies acute findings. Denies recent sexual activity. Denies fever, chest pain, SOB, nausea, vomiting, neck pain. Reports last BM earlier today. Denies IVDA, hx of cancer, or radiation of symptoms. Allergies: Coded Allergies: HYDROMORPHONE (Verified Allergy, Severe, 06/16/16) PENICILLINS (Verified Allergy, Severe, " become the girl on fire.", 02/03/13 ) DOXYCYCLINE (Verified Allergy, Intermediate, rash, 02/03/13) SULFA (SULFONAMIDE ANTIBIOTICS) (Verified Allergy, Unknown, 03/21/17) Patient History Past Medical History: see triage record Last Menstrual Period: 7 yrs ago Reviewed Nursing Documentation: PMH: Agreed; PSxH: Agreed Nursing Documentation-PMH Past Medical History: No History, Except For Hx Cardiac Problems: Yes - tachycardia Hx Pacemaker: No Hx Asthma: No Hx COPD: No Hx Diabetes: Yes Hx Cancer: No Hx Gastrointestinal Problems: No Hx Dialysis: No Hx Neurological Problems: Yes - lupus, fibromyalgia, arthritis Hx Cerebrovascular Accident: No Hx Seizures: No Review of Systems All Other Systems: negative except mentioned in HPI Physical Exam Vital Signs Date Time Temp Pulse Resp B/P (MAP) Pulse Ox O2 Delivery O2 Flow Rate FiO2 01/05/18 16:56 98.1 86 18 103/65 95 Room Air 98.1 Sp02 EP Interpretation: reviewed, normal General Appearance: well appearing, no apparent distress, alert, GCS 15, non- toxic Head: normocephalic, atraumatic Eyes: bilateral eye normal inspection, bilateral eye PERRL ENT: hearing grossly normal, normal pharynx, no angioedema, normal voice, uvula midline, moist mucus membranes Neck: full range of motion Respiratory: lungs clear, normal breath sounds, no rhonchi, no respiratory distress, no accessory muscle use, no wheezing, speaking full sentences Cardiovascular #1: regular rate, rhythm, no edema Gastrointestinal: non tender, soft, no mass, non-distended, no guarding, no rebound Genitourinary: no CVA tenderness, deferred Musculoskeletal: back normal, digits/nails normal, gait/station normal, normal range of motion, non-tender, no calf tenderness, Raudel's Sign negative Neurologic: alert, oriented x3, responsive, motor strength/tone normal, SLR negative, sensory intact Psychiatric: mood/affect normal Skin: no rash Medical Decision Making PA Attestation Dr. Isaacs is my supervising Physician whom patient management has been discussed with. Diagnostic Impression: Primary Impression: Pain with urination Additional Impression: Chronic back pain ER Course Pt presents to ED c/o urinary symptoms. DDX considered but are not limited to cystitis, pyelonephritis, STI, vaginitis, . VITAL SIGNS are WNL, patient is afebrile. Ordered UA. ER COURSE UA results show no nitrites, no leukocyte esterase, no WBC, indicate UTI unlikely, will not treat with abx. Provided with copy of results. If concern for STI, followup with STI clinic for testing and treatment. Denies STI concern. Patient declined vaginal US and further workup at this time. Deferred pelvic exam. Discussed possible cause of symptoms. Do not wipe back to front, wipe front to back, practice good hygiene habits. Instructed to followup with primary care provider and request referral to OBGYN and urinary specialist as needed. Reports hx of chronic back pain. Reports has not followed up. Denies new or worsening of symptoms. SLR negative. Reports hx of MRIs. Does not require imaging at this time. Recommended Tylenol and lidocaine patch for symptoms. Reports Lidocaine patches not covered by insurance. Recommended OTC medication and [place]. Instructed to followup with primary care provider for further diagnosis and treatment. Referral to ortho and/or pain management as needed. Patient is resting comfortably in chair, nontoxic appearing, in no acute distress. Patient states they feel better and is ready to go home. DISCHARGE -Rx provided for Phenazopyridine for pain. SE turns urine orange. Patient is stable for discharge. Patient resting comfortably, in no acute distress, nontoxic appearing, talking without difficulty. Will provide with patient care instructions and any necessary prescriptions. Patient understands and agrees to treatment plan. Patient encouraged to drink plenty of fluids. Patient to take medication as instructed. Care plan and follow-up instructions provided. Patient questions asked and answered. Reports understanding and agreement to treatment plan. Patient instructed to follow-up with primary care provider in 3 - 5 days. ER precautions given. Patient instructed to return to ER immediately for any new or worsening of symptoms. Including but not limited to fever, abdominal pain , intractable vomiting. Labs Test 01/05/18 17:02 Urine Color Pale yellow Urine Appearance Clear Urine pH 5 (4.5-8.0) Urine Specific [place] 1.020 (1.005-1.035) Urine Protein Negative (NEGATIVE) Urine Glucose (UA) Negative (NEGATIVE) Urine Ketones Negative (NEGATIVE) Urine Occult Blood Negative (NEGATIVE) Urine Nitrite Negative (NEGATIVE) Urine Bilirubin Negative (NEGATIVE) Urine Urobilinogen Normal MG/DL (0.0-1.0) Urine Leukocyte Esterase Negative (NEGATIVE) Last Vital Signs Date Time Temp Pulse Resp B/P (MAP) Pulse Ox O2 Delivery O2 Flow Rate FiO2 01/05/18 16:56 98.1 86 18 103/65 95 Room Air 98.1 Disposition: HOME, SELF-CARE Condition: Stable Scripts Phenazopyridine Hcl* (PYRIDIUM*) 200 Mg Tablet 200 MG ORAL THREE TIMES A DAY, #14 TAB 0 Refills Prov: Oswaldo Gottlieb 01/05/18 Patient Instructions: Back Exercises, [id number], Back Pain, Adult, Easy-to- Read, Interstitial Cystitis, Urinary Tract Infection Additional Instructions: Followup with primary care provider in 3-5 days. Discuss referral to Urology due to recurrence of UTIs. Discuss followup with OBGYN. Discuss referral and treatment plan for back pain. Referral to pain management and/or orthopedically impaired teacher as needed. Drink plenty of fluids. Take medications as directed. Pyridium has SE of turning urine orange. Patient questions asked and answered. ER precautions given, patient instructed to return to ER immediately for any new or worsening of symptoms. Oswaldo Gottlieb Jan 05, 2018 17:27
[2018-01-05 17:29] VITALS: BP 118/97
[2018-01-05 17:30] LABS: APPEARANCE,URINE CLEAR; BILIRUBIN, URINE NEGATIVE (NEGATIVE); COLOR,URINE PALE YELLOW; GLUCOSE, URINE (UA) NEGATIVE (NEGATIVE); KETONES,URINE NEGATIVE (NEGATIVE); LEUKOCYTE ESTERASE ,URINE NEGATIVE (NEGATIVE); NITRITE,URINE NEGATIVE (NEGATIVE); PH,URINE 5 (4.5-8.0); PROTEIN,URINE NEGATIVE (NEGATIVE); UROBILINOGEN,URINE NORMAL MG/DL (0.0-1.0)
[2018-01-05] MEDS ORDERED: Ketorolac 30mg Inj IM ONE (17:30)
[2018-01-05] MEDS ORDERED: PHENAZOPYRIDIN200 MG ORAL (17:55)
[2018-01-05 18:30] VITALS: BP_SYST 101; BP_SYST 118; BP_DIAS 74; BP_DIAS 97
== END 2018-01-05 18:30 | disposition home or self-care (01) ==
LOC: EMR 17:25
DX: R30.0 Dysuria (principal); G89.29 Other chronic pain; Z88.2 Allergy status to sulfonamides; Z88.0 Allergy status to penicillin; Z88.6 Allergy status to analgesic agent; E11.9 Type 2 diabetes mellitus without complications; M79.7 Fibromyalgia
CPT/HCPCS: 81003; 96372; 99283; J1885

== ENCOUNTER 2018-04-09 08:37 | Emergency (ER) | payer OTHER ==
[~2018-04-09] VITALS: Ht 162.6 cm; Wt 114.3 kg
[~2018-04-09 08:37] MED LIST changes: +PHENAZOPYRIDIN200 MG ORAL
[2018-04-09] MEDS ORDERED: Ketorolac 60mg Inj IM ONE (09:15)
--- NOTE | 2018-04-09 09:15 | Emergency Room Report ---
History of Present Illness General Chief Complaint: Pain Source: Patient, Medical Record Present Illness HPI Patient presents with one week of left hip pain that radiates down to the anterior part of her thigh. She states the pain is 9/10. It is keeping her awake at night. She's tried Tylenol with codeine, Motrin and Flexeril. She denies any fevers. There is no recent trauma. She was seen by her doctors and got a sucrose injection which didn't help. They have scheduled her for physical therapy. In the past she was told she has hip bursitis. There's been no trauma since that time. This was evaluated with x-rays in the past. She also has a prior history of lumbar pain with sciatica on the right-hand side. She's had surgery for that. This feels different than the sciatica on the opposite side. She denies any saddle numbness, incontinence, numbness down the leg. She feels slight weakness on that side but it's mainly related to pain. The patient also has a history of fibromyalgia and lupus. She states the lupus is stable. No rashes. No dysuria, NVD, no URI sy, chest pain, cough, dyspnea. Allergies: Coded Allergies: HYDROMORPHONE (Verified Allergy, Severe, 06/16/16) PENICILLINS (Verified Allergy, Severe, " become the girl on fire.", 02/03/13 ) DOXYCYCLINE (Verified Allergy, Intermediate, rash, 02/03/13) SULFA (SULFONAMIDE ANTIBIOTICS) (Verified Allergy, Unknown, 03/21/17) Patient History Past Medical History: see triage record Social History: Denies: smoking Social History Narrative with significant other Last Menstrual Period: 2010 Reviewed Nursing Documentation: PMH: Agreed; PSxH: Agreed Nursing Documentation-PM Past Medical History: No History, Except For Hx Cardiac Problems: Yes - tachycardia Hx Pacemaker: No Hx Asthma: No Hx COPD: No Hx Diabetes: Yes Hx Cancer: No Hx Gastrointestinal Problems: No Hx Dialysis: No Hx Neurological Problems: Yes - lupus, fibromyalgia, arthritis Hx Cerebrovascular Accident: No Hx Seizures: No Review of Systems All Other Systems: negative except mentioned in HPI Physical Exam Vital Signs Date Time Temp Pulse Resp B/P (MAP) Pulse Ox O2 Delivery O2 Flow Rate FiO2 04/09/18 08:43 98.0 106 18 123/58 96 Room Air 98.1 Sp02 EP Interpretation: reviewed, normal General Appearance: well appearing, no apparent distress Head: normocephalic, atraumatic Eyes: bilateral eye normal inspection, bilateral eye PERRL ENT: hearing grossly normal, normal voice, moist mucus membranes Neck: full range of motion, supple, no bony tend Respiratory: lungs clear, normal breath sounds, no respiratory distress, speaking full sentences Cardiovascular #1: regular rate, rhythm, no edema Cardiovascular #2: 2+ radial (R) Gastrointestinal: normal inspection, normal bowel sounds, soft, overweight Genitourinary: no CVA tenderness Musculoskeletal: back normal, digits/nails normal, gait/station normal, normal range of motion, no calf tenderness, pelvis stable, other - pain with compression of R hip area. SLR negative at 90 degrees. Neurologic: alert, oriented x3, motor strength/tone normal, DTRs symmetric, sensory intact, cerebellar normal, normal gait Psychiatric: mood/affect normal Reflexes: 2+ knee (R), 2+ knee (L), 2+ ankle (R), 2+ ankle (L) Skin: no rash Medical Decision Making Diagnostic Impression: Primary Impression: Hip bursitis, left Qualified Codes: M70.72 - Other bursitis of hip, left hip ER Course Patient presents with L hip pain. Exam against sciatica or lumbar source. Not toxic and septic joint or gout doubted. No urinary symptoms so UTI less likely. DVT excluded by location of pain and exam. Has had bursitis in past and this is most likely. Patient will be treated with toradol and tylenol. Patient states no real relief with toradol. Tylenol given. Discussed need for further evaluation and treatment by PMD with recommendation for physical therapy. Patient stable for outpatient observation and treatment. If pain persists and/or worsens, consider lab evaluation to exclude gout. Last Vital Signs Date Time Temp Pulse Resp B/P (MAP) Pulse Ox O2 Delivery O2 Flow Rate FiO2 04/09/18 10:20 98.1 91 18 103/69 95 Room Air 98.1 Status: improved Disposition: HOME, SELF-CARE Condition: Improved Scripts Hydrocodone Bit/Acetaminophen 5-325* (NORCO 5-325*) 1 Each Tablet 1 TAB ORAL Q6H PRN for For Pain, #14 TAB 0 Refills Prov: Len Newman M.D. 7/13/18 Referrals: NON PHYSICIAN (PCP) Len Newman M.D. Apr 09, 2018 09:15
[2018-04-09] MEDS ORDERED: NORCO 5-325 TA1 EACH ORAL (09:21)
[2018-04-09 10:20] VITALS: BP 103/69
== END 2018-04-09 10:20 | disposition home or self-care (01) ==
LOC: EMR 09:13
DX: M70.72 Other bursitis of hip, left hip (principal); M32.9 Systemic lupus erythematosus, unspecified; M79.7 Fibromyalgia; M19.90 Unspecified osteoarthritis, unspecified site; E11.9 Type 2 diabetes mellitus without complications; Z88.6 Allergy status to analgesic agent; Z88.0 Allergy status to penicillin; Z88.1 Allergy status to other antibiotic agents; Z88.2 Allergy status to sulfonamides
CPT/HCPCS: 99283